=== PATIENT | male | born 1990 | race Caucasian/White ===

== ENCOUNTER 2019-10-06 20:38 | Emergency (ER) | payer MEDICAID ==
[~2019-10-06] VITALS: Ht 172.7 cm; Wt 81.8 kg
[2019-10-06 22:05] VITALS: BP 140/80
== END 2019-10-06 22:06 | disposition home or self-care (01) ==
LOC: ER 20:39
DX: R21 Rash and other nonspecific skin eruption (principal)
CPT/HCPCS: 99281